=== PATIENT | female | born 1995 | race African-American/Black ===

== ENCOUNTER 2021-01-13 01:46 | Emergency (ER) | payer MEDICAID ==
[~2021-01-13] VITALS: Ht 165.1 cm; Wt 71.0 kg
[2021-01-13 01:50] VITALS: BP 113/68
[2021-01-13] MEDS ORDERED: IBUP-2028 MT (04:04)
== END 2021-01-13 04:15 | disposition home or self-care (01) ==
LOC: ER 01:46
DX: R07.81 Pleurodynia (principal)
CPT/HCPCS: 71045; 93005; 99283

== ENCOUNTER 2021-06-18 09:10 | Emergency (ER) | payer MEDICAID, OTHER ==
[~2021-06-18] VITALS: Ht 165.1 cm; Wt 70.0 kg
[~2021-06-18 09:10] MED LIST: IBUP-2028 MT
[2021-06-18 09:18] VITALS: BP 108/74
== END 2021-06-18 11:36 | disposition left against medical advice (07) ==
LOC: ER 09:10
DX: R76.11 Nonspecific reaction to tuberculin skin test without active tuberculosis (principal); Z00.00 Encounter for general adult medical examination without abnormal findings
CPT/HCPCS: 99281